=== PATIENT | male | born 1980 | race Caucasian/White ===

== ENCOUNTER 2018-10-26 07:38 | Emergency (ER) | payer OTHER ==
[~2018-10-26] VITALS: Ht 190.5 cm; Wt 93.0 kg
[2018-10-26] MEDS ORDERED: BACTRIM DS TAB1 EACH PO (09:40)
[2018-10-26] MEDS ORDERED: MIRALAX17 GM PO (09:40)
[2018-10-26] MEDS ORDERED: PEPCID20 MG PO (09:40)
[2018-10-26] MEDS ORDERED: ZOFRAN4 MG PO (09:44)
[2018-10-27] MEDS ORDERED: AUGMENTIN 875-1 EACH PO (16:42)
== END 2018-10-26 09:49 | disposition home or self-care (01) ==
LOC: ED 07:38
DX: N39.0 Urinary tract infection, site not specified (principal); K59.00 Constipation, unspecified; E86.0 Dehydration; K21.9 Gastro-esophageal reflux disease without esophagitis; F20.9 Schizophrenia, unspecified; F17.200 Nicotine dependence, unspecified, uncomplicated; Z88.5 Allergy status to narcotic agent; Z88.6 Allergy status to analgesic agent
CPT/HCPCS: 74018; 80053; 81001; 83690; 85025; 87088; 96361; 96374; 99284-25; J2405; J7030; J7040

== ENCOUNTER 2018-10-26 14:24 | Emergency (ER) | payer OTHER ==
[~2018-10-26] VITALS: Ht 190.5 cm; Wt 93.0 kg
[~2018-10-26 14:24] MED LIST: BACTRIM DS TAB1 EACH PO; MIRALAX17 GM PO; PEPCID20 MG PO; ZOFRAN4 MG PO
--- OUTSIDE RECORDS SUMMARY | 2018-10-26 14:26 | XMS ---
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 [facility] has no Care Guidelines for this patient. [place] V[facility] COUNT (12 MO.) [facility] TOTAL 2 NOTE: Visits indicate total known visits. ED/[facility] VISIT TRACKING (12 MO.) [facility]2018 14[facility]24 [facility] [place] [facility] COMPLAINT: - PAIN WHILE BREATHING 10/26/2018 07:38 [facility] [place] TYPE: Emergency COMPLAINT: - NAUSEA/VOMITING/DIARRHEA INPATIENT VISIT TRACKING (12 MO.) No inpatient visits to display in this time frame [id number]
[2018-10-27] MEDS ORDERED: AUGMENTIN 875-1 EACH PO (16:42)
== END 2018-10-26 18:13 | disposition home or self-care (01) ==
LOC: ED 14:24
DX: R07.89 Other chest pain (principal); F17.200 Nicotine dependence, unspecified, uncomplicated; Z88.6 Allergy status to analgesic agent; Z88.5 Allergy status to narcotic agent
CPT/HCPCS: 71046; 99283-25

== ENCOUNTER 2018-10-27 16:02 | Emergency (ER) | payer OTHER ==
[~2018-10-27] VITALS: Ht 190.5 cm; Wt 93.0 kg
--- OUTSIDE RECORDS SUMMARY | 2018-10-27 16:04 | XMS ---
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 [facility] has no Care Guidelines for this patient. Care History Medical/Surgical 10/27/2018 [facility] - NO CONTACT NUMBER AND OR ADDRESS LISTED- - CHW IS UNABLE TO CONTACT PATIENT TO HELP PATIENT WITH SETTING UP PCP. E.D. VISIT COUNT ([address] [facility]. TOTAL 3 NOTE: Visits indicate total known visits. ED/UCC VISIT TRACKING (12 MO.) 10/27/2018 16:02 [facility] [place] TYPE: Emergency COMPLAINT: - CHEST PAIN 10/26/2018 14:24 [facility] [place] TYPE: Emergency COMPLAINT: - PAIN WHILE BREATHING 10/26/2018 07:38 [facility] [place] TYPE: Emergency COMPLAINT: - NAUSEA/VOMITING/DIARRHEA INPATIENT VISIT TRACKING (12 MO.) No inpatient visits to display in this time frame [id number]
[2018-10-27] MEDS ORDERED: AUGMENTIN 875-1 EACH PO (16:42)
== END 2018-10-27 17:47 | disposition home or self-care (01) ==
LOC: ED 16:02
DX: G43.909 Migraine, unspecified, not intractable, without status migrainosus (principal); J06.9 Acute upper respiratory infection, unspecified; F17.200 Nicotine dependence, unspecified, uncomplicated; Z88.5 Allergy status to narcotic agent; Z88.8 Allergy status to other drugs, medicaments and biological substances; Z79.899 Other long term (current) drug therapy
CPT/HCPCS: 96361; 96374; 96375; 99284-25; J1200; J1885; J2765; J7030

== ENCOUNTER 2018-11-03 07:13 | Emergency (ER) | payer OTHER ==
[~2018-11-03] VITALS: Ht 190.5 cm; Wt 93.0 kg
[~2018-11-03 07:13] MED LIST changes: +AUGMENTIN 875-1 EACH PO
--- OUTSIDE RECORDS SUMMARY | 2018-11-03 07:18 | XMS ---
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 [facility] has no Care Guidelines for this patient. Care History Medical/Surgical 10/27/2018 [facility] - NO CONTACT NUMBER AND OR ADDRESS LISTED- - CHW IS UNABLE TO CONTACT PATIENT TO HELP PATIENT WITH SETTING UP PCP. - PATIENT IS CURRENTLY SELF PAY AND NEEDS TO APPLY FOR MEDICAL BENEFITS IN ORDER TO RESIDENTIAL HOUSEKEEPER PRESCRIPTIONS. E.D. VISIT COUNT (12 MO.) 4 [facility] TOTAL 4 NOTE: Visits indicate total known visits. ED/UCC VISIT TRACKING (12 MO.) 11/03/2018 07:[address] [facility] TYPE: Emergency COMPLAINT: - DIZZY 10/27/2018 16:[address] [facility] TYPE: Emergency COMPLAINT: - CHEST PAIN DIAGNOSES: - Acute upper respiratory infection, unspecified - Migraine, unspecified, not intractable, without status migrainosus - Nicotine dependence, unspecified, uncomplicated - Headache - Allergy status to other drugs, medicaments and biological substances status - Allergy status to narcotic agent status - Unspecified asthma, uncomplicated - Other terminal operator (current) drug therapy 10/26/2018 14:[address] [facility] TYPE: Emergency COMPLAINT: - PAIN WHILE BREATHING DIAGNOSES: - Allergy status to narcotic agent status - Nicotine dependence, unspecified, uncomplicated - Allergy status to analgesic agent status - Other chest pain 10/26/2018 07:[address] [facility] TYPE: Emergency COMPLAINT: - NAUSEA/VOMITING/DIARRHEA DIAGNOSES: - Gastro-esophageal reflux disease without esophagitis - Nicotine dependence, unspecified, uncomplicated - Schizophrenia, unspecified - Constipation, unspecified - Dehydration - Urinary tract infection, site not specified - Epigastric pain - Allergy status to narcotic agent status - Allergy status to analgesic agent status INPATIENT VISIT TRACKING (12 MO.) No inpatient visits to display in this time frame [id number]
== END 2018-11-03 08:41 | disposition home or self-care (01) ==
LOC: ED 07:13
DX: J02.9 Acute pharyngitis, unspecified (principal); F15.90 Other stimulant use, unspecified, uncomplicated; F17.200 Nicotine dependence, unspecified, uncomplicated; Z88.5 Allergy status to narcotic agent; Z88.6 Allergy status to analgesic agent; Z79.899 Other long term (current) drug therapy
CPT/HCPCS: 96372; 99283-25; J0561

== ENCOUNTER 2018-12-08 09:43 | Emergency (ER) | payer OTHER ==
[~2018-12-08] VITALS: Ht 190.5 cm; Wt 105.7 kg
--- OUTSIDE RECORDS SUMMARY | 2018-12-08 09:46 | XMS ---
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 [facility] has no Care Guidelines for this patient. Care History Medical/Surgical 10/27/2018 [facility] - PLEASE REFER PATIENT TO [facility]- [phone] IF PATIENT IS SEEN IN THE ED. [address] [place] [address]. TO HELP WITH HOMELESS RESOURCES AND A WARM PLACE TO STAY DURING THE DAY DURING THE WINTER . - NO CONTACT NUMBER AND OR ADDRESS LISTED- - CHW IS UNABLE TO CONTACT PATIENT TO HELP PATIENT WITH SETTING UP PCP. - PATIENT IS CURRENTLY SELF PAY AND NEEDS TO APPLY FOR MEDICAL BENEFITS IN ORDER TO ELECTRICIAN TELEPHONE PRESCRIPTIONS. E.D. VISIT COUNT (12 MO.) 5 [facility] TOTAL 5 NOTE: Visits indicate total known visits. ED/UCC VISIT TRACKING (12 MO.) 12/08/2018 09:44 [facility] [place] TYPE: Emergency COMPLAINT: - FEELS DRUGGEDE 11/03/2018 07:14 [facility] [place] TYPE: Emergency COMPLAINT: - DIZZY DIAGNOSES: - Other amnesia - Other stimulant use, unspecified, uncomplicated - Allergy status to analgesic agent status - Acute pharyngitis, unspecified - Allergy status to narcotic agent status - Other retirement (current) drug therapy - Nicotine dependence, unspecified, uncomplicated 10/27/2018 16:02 [facility] [place] TYPE: Emergency COMPLAINT: - CHEST PAIN DIAGNOSES: - Acute upper respiratory infection, unspecified - Migraine, unspecified, not intractable, without status migrainosus - Nicotine dependence, unspecified, uncomplicated - Headache - Allergy status to other drugs, medicaments and biological substances status - Allergy status to narcotic agent status - Unspecified asthma, uncomplicated - Other oil heaterman (current) drug therapy 10/26/2018 14:24 [facility] TYPE: Emergency COMPLAINT: - PAIN WHILE BREATHING DIAGNOSES: - Allergy status to narcotic agent status - Nicotine dependence, unspecified, uncomplicated - Allergy status to analgesic agent status - Other chest pain 10/26/2018 07:38 [facility] [place] TYPE: Emergency COMPLAINT: - NAUSEA/VOMITING/DIARRHEA DIAGNOSES: [...] visits to display in this time frame [id number]
== END 2018-12-08 12:15 | disposition home or self-care (01) ==
LOC: ED 09:43
DX: F15.959 Other stimulant use, unspecified with stimulant-induced psychotic disorder, unspecified (principal); F12.959 Cannabis use, unspecified with psychotic disorder, unspecified; F20.9 Schizophrenia, unspecified; Z95.0 Presence of cardiac pacemaker; F17.200 Nicotine dependence, unspecified, uncomplicated; Z88.5 Allergy status to narcotic agent; Z88.6 Allergy status to analgesic agent
CPT/HCPCS: 80053; 80176; 81001; 85025; 99283; G0480